=== PATIENT | female | born 1930 | race Caucasian/White ===

== ENCOUNTER → 2016-12-03 | Outpatient (CLI) | payer MEDICARE, BC ==
[~2016-12-03] MED LIST: ALEVE220 MG PO; ASPIRIN LO-DOSE81 MG PO; ATIVAN 1 MG1 MG PO; ATIVAN1 MG PO; BENICAR 20 MG20 MG PO; BENTYL10 MG PO; BYSTOLIC2.5 MG PO; CARDIZEM30 MG PO; CIPRO500 MG PO; FISH OIL 1,2001 EACH PO; LEVOTHROID (SY88 MCG PO; NITROGLYCERIN0.4 MG SL; PLAVIX75 MG PO; RESTASIS 0.05%1 VIAL OPHTH; TYLENOL325 MG PO; ULTRAM50 MG PO; VITAMIN B-121000 MCG PO; VITAMIN D1000 UNIT PO; WARFARIN SODIUM2 MG PO
[2016-12-03 16:16] LABS: BILIRUBIN URINE NEGATIVE (NEGATIVE); BLOOD URINE NEGATIVE /UL (NEGATIVE); COLOR URINE YELLOW (YELLOW); GLUCOSE URINE NEGATIVE (NEGATIVE); KETONE URINE NEGATIVE (NEGATIVE); LEUKOCYTES URINE 500 /UL (NEGATIVE); NITRITE URINE NEGATIVE (NEGATIVE); PROTEIN URINE NEGATIVE (NEGATIVE); TURBIDITY URINE CLEAR (CLEAR); UROBILINOGEN URINE NORMAL (NORMAL)
[2016-12-03 16:22] LABS: RBC URINE NEGATIVE #/HPF (NEGATIVE); RENAL EPITH URINE 0-2 #/HPF (NEGATIVE); WBC URINE 20-50 #/HPF (NEGATIVE)
[2016-12-03 16:23] LABS: BACTERIA URINE MODERATE (NEGATIVE); MUCUS URINE 1+ (NEGATIVE); WBC CLUMPS URINE FEW (NEGATIVE)
[2016-12-03 16:50] LABS: BASOPHIL # 0.1 K/uL (0.0-0.2); BASOPHIL % 0.7 %; EOSINOPHIL # 0.2 K/uL (0.0-0.5); EOSINOPHIL % 1.7 %; HEMATOCRIT 42.6 % (30.0-46.0); IMMATURE GRANULOCYTE % 0.2 %; LYMPHOCYTE # 1.8 K/uL (0.8-4.0); LYMPHOCYTE % 21.2 %; MCH 31.1 pg (27.0-34.0); MCHC 32.9 gm/dL (32.0-36.5); MCV 94.7 fl (83.0-98.0); MONOCYTE # 0.6 K/uL (0.0-1.0); MONOCYTE % 7.1 %; MPV 10.9 fl (9.4-12.4); NEUTROPHIL % 69.1 %; NRBC % 0 /100WBC (0-0.00); PLATELET COUNT 252 K/uL (150-450); RDW-CV 13.2 % (11.9-14.6); WBC 8.6 K/uL (4.0-11.0)
[2016-12-03 17:04] LABS: ANION GAP 10.5 (10.0-19.0); BLOOD UREA NITROGEN 17 mg/dL (6-24); CALCIUM 8.9 mg/dL (8.5-10.5); CHLORIDE 108 mMol/L (96-110); CO2 26 mMol/L (22-32); CREATININE 0.8 mg/dL (0.5-1.1); ESTIMATED GFR (MDRD EQUATION) > 60; POTASSIUM 4.5 mMol/L (3.7-5.1); SODIUM 140 mMol/L (135-145)
== END ==
LOC: LNHI 15:39
PROVIDERS: Internal Medicine Clinical Cardiac Electrophysiology
DX: Z01.810 Encounter for preprocedural cardiovascular examination (principal)

== ENCOUNTER → 2017-01-23 | Outpatient (CLI) | payer MEDICARE, BC ==
--- NOTE | ~2017-01-23 | ESTC ---
Cardiac Perfusion Imaging Demographics Patient Name RASHAUN Avila Gender Female Patient Number [id number] Race Visit Number [id number] Ethnicity Corporate ID Room Number Accession Number [id number] Height 58 inches Date of 1930 Weight 115 pounds Interpreting Emma Gomez Date of study 01/23/2017 Physician Supervising /JAYLAP Thomas GARCIA Technologist Kaitlin Sinclair MD Ordering Physician Thomas Scanlon A patient care technician Stress ECG Reading Thomas Jarvis Nurse Christine Rutherford Physician Dottie VILLARREAL RN Medications Reviewed with Patient prior to Procedure. Procedure Procedure Type: Nuclear Stress Test:Pharmacological, Lexiscan, Cardiolite Stress Test Procedure Start time: 01/23/2017 08:20 Indications: Chest pain, Hypertension and History of CAD. Risk Factors The patient risk factors include:prior PCI;cerebrovascular disease, hypercholesterolemia, treated hypertension, dyslipidemia and prior CT . Conclusions Summary Perfusion Images: The overall quality of the study is poor. Left ventricular cavity is noted to be normal on the stress and normal on the rest images. There is no evidence of abnormal lung activity. The right ventricle is not visualized an cannot be assessed. Impression ECG portion of lexiscan stress test is clinically negative for ischemia by diagnostic criteria. Myocardial perfusion imaging without perfusion defects suggestive of ischemia or infarct. Overall left ventricular systolic function was normal without regional wall motion abnormalities. Calculated LVEF is 80% and TID ratio is 1.16. Stress Protocols Resting ECG A paced and SR Pre-stress physical exam: Patient assessed by Dr Guzman prior to testing. Stress Protocol:Pharmacologic Predicted HR: 132 bpm ECG Findings No ECG changes suggestive of ischemia. Arrhythmias No rhythm abnormality. Symptoms Shortness of breath. Nausea. Stress Interpretation Appropriate hemodynamic response to Lexiscan. No significant ST-T wave changes with Lexiscan. ECG portion is negative for ischemia by diagnostic criteria. Imaging Results Summed scores - Summed stress score: 9 - Summed rest score: 20 - Summed difference score: -11 Stress ejection Ejection fraction:80 % EDV :59 ml ESV :12 ml Stroke volume :47 ml LV mass :85 gr Imaging Protocols Rest Stress Isotope:Tc99m Sestamibi IV Isotope: Tc99m Sestamibi IV Isotope dose:10.4 mCi Isotope dose:32.5 mCi Date:01/23/2017 07:17 Date:01/23/2017 08:40 Technique: SPECT Technique: Gated Supine SPECT Supine Scan Time:45-60 minutes post Scan Time:45-60 minutes post injection injection Procedure Medications - Regadenoson (Lexiscan) 0.4 mg IV over 10-15 sec. I.V. 0.4 mg. Medications administered per verbal order and read back to physician prior to administration. Medical History Admission Data Admission date: 01/23/2017 Admission Time: 06:36 Hospital Status: Outpatient. Signatures dtt: JORDON KRUEGER dtd: 01/23/17 0895 Physician Self Edit
== END | disposition disaster alternative care site (69) ==
LOC: GRAD 06:36
DX: R07.9 Chest pain, unspecified (principal); R26.2 Difficulty in walking, not elsewhere classified; E78.00 Pure hypercholesterolemia, unspecified; E78.5 Hyperlipidemia, unspecified; I10 Essential (primary) hypertension; I67.9 Cerebrovascular disease, unspecified; I25.2 Old myocardial infarction; Z86.73 Personal history of transient ischemic attack (TIA), and cerebral infarction without residual deficits
CPT/HCPCS: A9500; J2785

== ENCOUNTER 2017-02-01 05:51 | Inpatient (IN) | payer MEDICARE, BC ==
[~2017-02-01] VITALS: Ht 149.9 cm; Wt 52.1 kg
--- NOTE | ~2017-02-01 | HP ---
PATIENT'S NAME: GAVIN RODNEY [facility] AGE: 86 Y [address] ROOM: [place] [address] LOCATION: GPCU ADMIT DATE: 02/01/2017 History & Physical DISCHARGE DATE: FAMILY PHYSICIAN: KO BURTON MD ATTENDING PHYSICIAN: Rod HUTCHINSON DATE OF SERVICE: CHIEF COMPLAINT: Chest pain. HISTORY OF PRESENT ILLNESS: The patient is an 86-year-old female with past medical history of CAD status post PCI, atrial fibrillation on Coumadin, hyperlipidemia, and sick sinus syndrome on pacemaker, who presents here with chest pain. The patient reports that she got up at 4 a.m. due to chest pain. She reports chest pain as chest discomfort, substernal, rates the pain 6 to 5 out of 10. Pain was associated with weakness and mild shortness of breath. EMS was called and the patient was brought in to our Emergency Department for further evaluation. En route to the Emergency Department, the patient received full dose of aspirin and nitroglycerin. The patient reports that as soon as she received nitroglycerin few minutes later her chest pain resolved. Of note, the patient has had stress test done on January 23, 2017. The patient had Lexiscan, the test was of poor quality, but was noted to be normal. The patient also was in [place] and has had pacemaker placement for sick sinus syndrome. The patient denies fever, chills, abdominal pain, nausea, and vomiting, diarrhea, dizziness, syncope, vision change, and productive cough. MEDICAL HISTORY: 1. Hypothyroidism. 2. Coronary artery disease. 3. CVA. 4. Atrial fibrillation. 5. Sick sinus syndrome. SURGICAL HISTORY: 1. PCI. 2. Hysterectomy. 3. Pacemaker placement. 4. Hernia repair. 5. Oophorectomy. 6. Tonsillectomy. PATIENT'S NAME: ANIKET RODNEYNA Austin [facility] AGE: 86 Y [address] ROOM: [place] [address] LOCATION: GPCU ADMIT DATE: 02/01/2017 History & Physical DISCHARGE DATE: FAMILY PHYSICIAN: KO BURTON MD ATTENDING PHYSICIAN: Rod HUTCHINSON FAMILY HISTORY: The patient reports her sister and mother had cancer, but she does not know what type. Father had significant heart disease. SOCIAL HISTORY: Denies smoking, denies drinking. 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 Her 20 years ago. ALLERGIES: THE PATIENT REPORTS SHE IS ALLERGIC TO F[place]ANYL. MEDICATIONS: Currently being reconciled. REVIEW OF SYSTEMS: All systems have been reviewed and are negative except for what I mentioned in HPI. PHYSICAL EXAMINATION: VITAL SIGNS: Temperature 97, blood pressure 113/72, heart rate 66, respiratory rate 18, saturating 94% on room air. GENERAL APPEARANCE: The patient is an elderly woman lying on bed, in no acute distress, have a family member with her. HEAD: Normocephalic and atraumatic. EYES: Extraocular muscle intact. Sclerae nonicteric. NOSE: No nasal discharge. EARS: No ear discharge. ORAL CAVITY: Moist oral cavity. CHEST: Clear to auscultation bilaterally. HEART: Regular rate and rhythm. No murmurs, rubs, or gallops heard. ABDOMEN: Soft, nontender, and nondistended. Bowel sounds present. SKIN: Warm to touch, no obvious lesion noted. MUSCULOSKELETAL: Range of motion intact. CENTRAL NERVOUS SYSTEM: The patient is alert and oriented. Motor and sensory grossly intact. LABORATORY DATA: Troponin x1 negative. INR 2.4, creatinine 0.9, BUN 19, potassium 4.5, white blood cell 8.5, hemoglobin 13.6, platelet of 252. EKG normal sinus rhythm. Normal axis. No ischemic ST and T-wave changes noted. CT 153, QRS 74, rate of 65. PATIENT'S NAME: GAVIN RODNEY [facility] AGE: 86 Y [address] ROOM: [id number] [place] [id number] [facility] ADMIT DATE: 02/01/2017 History & Physical DISCHARGE DATE: FAMILY PHYSICIAN: KO BURTON MD ATTENDING PHYSICIAN: Rod HUTCHINSON ASSESSMENT AND PLAN: 1. Unstable angina. The patient is presenting with typical chest pain during rest. The SMITH score of 4 with 30% risk at 14 days of all-cause mortality. New or recurrent myocardial infarction, or severe recurrent ischemia requiring urgent revascularization. We will admit the patient as an inpatient. We will continue aspirin, beta-carlos, and we will start the patient on Lipitor 80 mg. Discussed case with Cardiology. We will hold the Coumadin for possible coronary angiogram for tomorrow. We will keep the patient n.p.o. after midnight. We will have nitroglycerin p.r.n. for pain. 2. Hypertension, stable. We will continue Bystolic. We will hold ADAMS inhibitor for possible coronary angiogram. Hypertension, stable. 3. Paroxysmal atrial fibrillation. Elevated CHADS-VASc score, INR of 2.4. We will hold Coumadin for possible coronary angiogram tomorrow. To continue Bystolic. 4. Hypothyroidism. We will continue Synthroid supplement. 5. Sick sinus. Continue medication, on pacemaker. 6. History of cerebrovascular accident. Continue aspirin and Lipitor. 7. Hyperlipidemia. Start the patient on Lipitor 80 mg. We will acquire lipid profile tomorrow morning. Greater than 50 minutes was spent on patient's care. 50% of time spent on direct care and consultation with the ER physician Dr. Cartwright and Cardiology. We will admit the patient for unstable angina and possible coronary angiogram intervention by tomorrow. Keep the patient n.p.o. after midnight. Assessment and plan was discussed with the patient and family member. All questions were answered with satisfaction. Code status discussed on admission. Code status full code. MD MOHINI MCCLAIN/mitali /[id number] D: [id number] T: [id number] HISTORY & PHYSICAL
--- NOTE | ~2017-02-01 | DS ---
PATIENT'S NAME: GAVIN RODNEY [facility] AGE: 86 Y [address] ROOM: [address] [place] [address] LOCATION: GPCU ADMIT DATE: 02/01/2017 Discharge Summary DISCHARGE DATE: 02/03/2017 FAMILY PHYSICIAN: Zechariah Gifford MD ATTENDING PHYSICIAN: Rod Reyes DISCHARGE DIAGNOSES: 1. Unstable angina. 2. Hypertension, controlled. 3. Paroxysmal atrial fibrillation by history, paced. 4. Long-term anticoagulation (Coumadin). 5. Right forearm swelling status post heart catheterization. 6. History of right cerebrovascular accident with left hemiparesis. 7. Urinary tract infection. PROCEDURES: Left heart catheterization through the right upper extremity with a PCI to right coronary artery. REASON FOR ADMISSION: Chest pain. PHYSICAL EXAMINATION: VITAL SIGNS: Today, temp was 98, pulse was 64, BP 129/65, SaO2 was 95% on room air. GENERAL: She was alert and verbally articulate. CHEST: Clear. HEART: Regular rate and rhythm with a 2/6 systolic ejection murmur. Note that rhythm was paced. ABDOMEN: Belly was completely soft, nontender. No HSM or masses. No guarding or rebound. EXTREMITIES: Warm and well perfused with good distal pulses. Her right arm was quite swollen. She said it was stable, not getting any worse, and I recommended she hold the hand above the level of her heart like on the back of the couch or up a wall and just squeeze and hand in and out for 2 to 3 minutes every hour until that was better. She indicated understanding, is very interested in going home. LABORATORY RESULTS: Chemistries: Sodium, potassium, electrolytes all normal. Glucose was slightly elevated at 105. Calcium, BUN, and creatinine were normal. Albumin was low at 3.2. Liver function tests were all normal. GFR was 59, magnesium 2.1, lipid profile showed total cholesterol 171 with HDL 39, triglycerides 182. Troponin was initially elevated at 0.06. Free T4 was up slightly at 1.79 but TSH was normal at 0.6. D-dimer was normal at 0.216. Hematology: White count, hemoglobin, and platelets all normal. Differential was benign. CPK was low, but that was from January 20. Urinalysis actually showed 20-50 white cells with only 2-5 epithelials and moderate bacteria. PATIENT'S NAME: GAVIN RODNEY [facility] AGE: 86 Y [address] ROOM: [address] [place], [place] [address] [facility] AD[facility] DATE: 02/01/2017 Discharge Summary DISCHARGE DATE: 02/03/2017 FAMILY PHYSICIAN: Zechariah Gifford MD ATTENDING PHYSICIAN: Rod Reyes [facility] COURSE: At discharge, the patient will be discharged home. She is to get back into physical therapy for the deconditioning that occurred here and probably also 3 weeks ago when she had her pacer installed. I do not see that she was placed on antibiotics, so I will probably place her on Cipro at discharge as she is allergic to the sulfa. I will put her on Cipro 500 twice a day for 7 days and have her follow up on that in 2 weeks with her primary care doctor. Diet will be cardiac prudent. Activity will be per physical therapy. Medications will be per nursing med reconciliation. Note that this discharge process took 45 minutes. MD FANNY ROY/mitali /[id number] d: 02/04/17 0425 t: 02/24/17 1559, DISCHARGE SUMMARY
--- NOTE | ~2017-02-01 | CATH ---
Cardiac Diagnostic + PCI Report Demographics Patient Name RASHAUN Avila Gender Female Date of 1930 Age 86 year(s) Patient Number [id number] Date of Study 02/02/2017 Visit Number [id number] Room Number [address] [place] [id number] Ht 149.8 cm Wt 59.1 kg Referring Ирина Apple MD Primary Physician Physician Eric Velasco Performing Efstratiou Secondary Physician Physician Simona Sinclair MD Diagnostic Efstratiou Assisting Physician Physician Simona Sinclair MD Interventional Efstratiou Physician Public Interviewer Physician Simona Sinclair MD Findings and Conclusions Diagnostic Findings and Conclusion Patent mid LAD stent with moderate diffuse in stent restenosis. New severe distal RCA Stenosis. Diagnostic Recommendations PCI to RCA. Interventional Findings and Conclusion Successful LIDIA to distal RCA. Interventional Recommendations Triple therapy X 1 month, then Plavix and Wafarin for 11 months. Procedure Description The patient was brought to the diagnostic cardiac catheterization-EP laboratory in the fasting, non-sedated state. Informed consent was obtained in the written and verbal form after the risks and benefits were explained. The patient had no further questions and agreed to proceed. The planned puncture-incision site(s) were shaved and prepped with ChloraPrep and draped in the usual sterile manner. supplemental oxygen, Pain control medications was delivered by a registered nurse under physician guidance. Surface ECG rhythm, blood pressure measurement, and pulse oximetry were monitored throughout the procedure. Arterial access. The access site was infiltrated with lidocaine. The vessel was entered with the Seldinger technique. A sheath was advanced into the vessel and used for catheter placement. Selective left coronary angiography. A catheter was advanced into the left coronary vessel ostium under Fluoroscopic guidance. Contrast was injected by hand. Images were obtained in multiple projections. Selective right coronary angiography. A catheter was advanced into the right coronary vessel ostium under fluoroscopic guidance. Contrast was injected by hand. Images were obtained in multiple projections. Left heart catheterization. A catheter was advanced across the aortic valve to the left ventricle under fluoroscopic guidance. Resting hemodynamics were obtained. Angioplasty and Stent Placement: A guiding catheter was used to intubate the vessel. A 0.14 wire was then used to cross the lesion. A balloon catheter was placed across the lesion and inflated. The balloon catheter was then removed. A Drug Eluting Stent was placed and inflated. Post placement angiograms were performed. Arterial artery hemostasis was achieved. The patient was transferred to a regular nursing floor via cart accompanied by a nurse. The patient left the laboratory in stable condition. Diagnostic Cath Status: Urgent Interventional Cath Status: Urgent Procedure Procedure Type Diagnostic procedure:Angiography:, Coronary Angios /[facility] PCI procedure:Drug Eluting Coronary Stent:, RCA Indications: Chest pain and CAD. The procedure was explained in detail to the patient. Risks, complications and alternative treatments were reviewed. Written consent was obtained. Medications Reviewed with Patient prior to Procedure. Angiographic Findings Dominance: Right Cardiac Arteries and Lesion Findings LMCA: Lesion on LMCA: Mid subsection.20% stenosis . LAD: Lesion on Prox LAD: Ostial.50% stenosis . Lesion on Mid LAD: Mid subsection.40% stenosis . Comments:40 % mid diffuse in stent restenosis. Lesion on 1st Diag: Proximal subsection.20% stenosis . LCx: OM patent. Lesion on Prox CX: Proximal subsection.30% stenosis . RCA: There is a previous stent on Dist RCA Distal subsection. Lesion on Dist RCA: Distal subsection.80% stenosis reduced to 10%. Pre procedure SMITH III flow was noted. Post Procedure MSITH III flow was present. The guidewire cross was successful.The lesion was diagnosed as a low risk lesion.Culprit lesion. Treatment results:Interventional treatment was successful. Devices used - Whisper Wire .014 x 190. Number of passes: 1. - Emerge Balloon 3.0 x 12. 1 inflation(s) to a max pressure of: 14 eleazar. - Promus Premier 3.5 x 28 Stent. 1 inflation(s) to a max pressure of: 12 eleazar. - NC Emerge Balloon 3.75 x 15. 2 inflation(s) to a max pressure of: 18 eleazar. Lesion on Prox RCA: Proximal subsection.25% stenosis . Coronary Tree Procedure Data Procedure Date Date: 02/02/2017Start: 12:21 PMEnd: 12:56 PM Entry Locations - Retrograde Percutaneous access was performed through the Right Radial artery (Primary location). A 6 Fr sheath was inserted. Hemostasis was successfully obtained using Mechanical Compression. Closure Comments: Radial band placed by Neva Olsen. 16 ml's in band.. Procedure Medications Order and Administration + + +--------+-------+ !Time !Medication !Dosage !Route ! + + +--------+-------+ !02/02/2017 !Dilaudid !0.25 mg !I.V. ! !12:19 PM ! ! ! ! + + +--------+-------+ !02/02/2017 !PAE Radial Cocktail: Heparin 5000 units, ! !I.A. ! !12:24 PM !Nitroglycerin 200mcg, Verapamil 3 mg ! ! ! ! !(ACC_3) ! ! ! + + +--------+-------+ !02/02/2017 !Heparin (ACC_3) !2000 !I.V. ! !12:32 PM ! !units ! ! + + +--------+-------+ Devices Used - A6 Fr. BS JR 4 Diag. Catheterwas used for:Right coronary angiography. - A6 Fr. BS JL 3.5 Diag. Catheterwas used for:Left coronary angiography. - A6 Fr. HS Guide Catheterwas used for:RCA Intervention. Contrast Material - Isovue 63307 ml Fluoroscopy Time: Diagnostic: 7:48 minutes. Total: 7:48 minutes. Fluoroscopy Dose: Diagnostic: 370 mGy. Total: 370 mGy. Estimated Blood Loss: 15 ml. Additional [facility] PCI Information PCI Indication:PCI for high risk Non-STEMI or unstable angina. Medical History Performed Procedures and Imaging Results - Stress testing with SPECT MPIwas performed. Results were: Negative. History of Disease + + + + !Diagnosis !Date !Comments ! + + + + !CAD ! ! ! + + + + !Hypertension ! ! ! + + + + Allergies - Sulfa. - Other:(sulfa, bisphoshonates, ethyl alcohol,erythromycin,fentynl, statin, diltizem,demerol,alendronale). Risk Factors The patient risk factors include:prior PCI;cerebrovascular disease, physical activity, hypercholesterolemia, hypertension, family history of premature CAD, last creatinine: 0.9 mg/dl, creatinine clearance: 40.31 ml/min, dyslipidemia, Current/Recent(w/in 1 year) tobacco use and prior [place] . Admission Data Admission Date: 02/01/2017 Admission Time: 09:35 AM Admit Source: Emergency department Insurance Payors: Medicare. Admission Medications + +------+------+ + + + + !Medication !Dosage!Times !Last !Last !Administered !Comments ! ! ! !Per !Delivery !Delivery ! ! ! ! ! !Day !Date !Time ! ! ! + +------+------+ + + + + !Aspirin ! ! ! ! ! ! ! !(any) ! ! ! ! ! ! ! + +------+------+ + + + + !Beta ! ! ! ! ! ! ! !Tony ! ! ! ! ! ! ! !(any) ! ! ! ! ! ! ! + +------+------+ + + + + Clinical Evaluation Leading to Procedure - The patient's CAD presentation was assessed as: Unstable angina. - The patient's anginal syndrome during the past two weeks was assessed as: Class IV according to the [place] Cardiovascular Society Classification System (CCS). Anti-anginal medications were prescribed during the past two weeks. The medication is: Beta Blockers. - The patient has been in a state of heart failure within the past two weeks. - The patient's heart failure status was assessed as NYHA Class I. Snapshots Hemodynamics Condition: Rest O2 Consumption: Estimated: 140.77Heart Rate: 79 bpm Pressures (mmHg) +-----+ + !Site !Pressure ! +-----+ + !LV !155/4 ,13 ! +-----+ + !LV !155/4 ,14 ! +-----+ + !AO !157/65 (104) ! +-----+ + !LV !158/3 ,13 ! +-----+ + !AO !154/65 (103) ! +-----+ + Valve Gradients and Areas + +---------+---------+---------+ +---------+ + !Valve !Peak !Mean !Area !Index !Flow !Source ! + +---------+---------+---------+ +---------+ + !Aortic !2 !0 ! ! ! ! ! + +---------+---------+---------+ +---------+ + !Aortic !2 !0 ! ! ! ! ! + +---------+---------+---------+ +---------+ + Shunts Oxygen Values O2 Capacity 184.96 O2 Consumption 140.77 Signatures dtt: Esha Guzman dtd: 02/02/17 1221 Physician Self Edit
--- NOTE | ~2017-02-01 | ER ---
[facility] AGE[facility] 86 Y [address] ROOM: [place] [address] LOCATION: GPCU ADMIT DATE: 02/01/2017 ER/Outpatient Report DISCHARGE DATE: FAMILY PHYSICIAN: KO BURTON MD ATTENDING PHYSICIAN: Rod REYES Time of Arrival: 0554 hours. Time of Evaluation: 0554 hours. CHIEF COMPLAINT: Chest pain. HISTORY OF PRESENT ILLNESS: The patient is an 86-year-old female who presents to the emergency department today with chief complaint of chest pain. She reports this started approximately at 4 o'clock this morning. It is in center upper portion of her chest, it did wake her from sleep. She reports it feels like an elephant on her chest. Maximum was 3/10 in severity. She reports some associated shortness of breath with it. She has had a productive cough. She reports some nausea. No vomiting. She also reports she has just felt weaker than normal ever since she had a Lexiscan stress test performed approximately a week ago. She does report it was a heaviness, pressure tightness type pain. The patient denies any vomiting. No radiation. Denies any history of PE or DVT. No ripping or tearing sensation. No radiation to the back. PAST MEDICAL HISTORY: 1. Coronary artery disease with stents. 2. CVA with left-sided residual deficits. 3. Hypertension. 4. Dyslipidemia. 5. Atrial fibrillation. 6. Dry eyes. 7. Hypothyroidism. PAST SURGICAL HISTORY: 1. Pacemaker 4 weeks ago. 2. Hernia. 3. Hysterectomy. 4. Eye surgery. 5. Three cardiac stents. SOCIAL HISTORY: The patient denies any tobacco, alcohol, or illicit drug use. She does live by herself with close neighbor support. [facility] AGE: 86 Y [address] ROOM: [place] [address] LOCATION: GPCU ADMIT DATE: 02/01/2017 ER/Outpatient Report DISCHARGE DATE: FAMILY PHYSICIAN: KO BURTON MD ATTENDING PHYSICIAN: Rod REYES ALLERGIES: ALENDRONATE, CALCIUM, DABIGATRAN, FENTANYL, IBANDRONATE, STATINS, SULFA, TRAZODONE, AND VALSARTAN. MEDICATIONS: 1. Tylenol. 2. Aspirin 81 mg 2 tablets orally every morning. 3. Vitamin D3. 4. Vitamin B12. 5. Restasis. 6. Dicyclomine. 7. Diltiazem 30 mg 1 tablet p.o. q.i.d. as needed for palpitations. 8. Synthroid. 9. Lorazepam. 10. Aleve. 11. Bystolic 2.5 mg 1 tablet p.o. b.i.d. 12. Nitroglycerin as needed. 13. Benicar. 14. Hathorne-3 fatty acid. 15. Coumadin 2 mg 1 tablet daily. PRIMARY CARE DOCTOR: Ko Burton MD FOIL STAMP OPERATOR: Esha Guzman MD REVIEW OF SYSTEMS: All systems are reviewed by myself and are negative with the exception of those discussed in the HPI and past medical history. PHYSICAL EXAMINATION: VITAL SIGNS: Weight 54.9 kg. Blood pressure 113/72, pulse 66, respiratory rate 18, temperature 97.0, and oxygen saturation 94% on room air. GENERAL: The patient is an 86-year-old female, appears stated age, in no acute distress at this time. HEENT: Normocephalic and atraumatic. Pupils are equal, round, and reactive to light and accommodation. Extraocular motions are intact. Nares are patent bilaterally. Oropharynx is clear. NECK: Supple. There is no nuchal rigidity. CARDIOVASCULAR: Regular rate and rhythm. No murmurs, rubs, or gallops. LUNGS: Clear to auscultation bilaterally. No wheezes, rales, or rhonchi. ABDOMEN: Soft, nontender, and nondistended. No rebound, rigidity, or guarding. MUSCULOSKELETAL: The patient moves all 4 extremities. PATIENT'S NAME: GAVIN RODNEY [facility] AGE: 86 Y [address] ROOM: [id number] [place], [place] [address] [facility]ATION[facility] ADMIT DATE: 02/01/2017 ER/Outpatient Report DISCHARGE DATE: FAMILY PHYSICIAN: KO BURTON MD ATTENDING PHYSICIAN: Rod REYES SKIN: Warm and dry. There are no rashes or lesions noted. LABORATORY DATA AND IMAGING STUDIES: Labs and x-rays are obtained. EKG is obtained, is interpreted by myself, shows sinus rhythm with a rate of 65, normal axis, and normal interval. No ST elevation, ST depression, or T-wave inversions. This is compared to 05/30/2015. There is now a new normalization of V1, V2, V3 compared to the previous EKG. Repeat EKG is obtained at 0824 hours shows atrial pacing with a rate of 60, normal axis, and normal interval. No ST elevation, ST depression, or T-wave inversions. CBC is normal. CMP is normal. Magnesium is normal. LFTs are normal. Cardiac enzymes are normal. ProBNP is normal. CK, CK-MB, and troponin are all normal. INR is 2.47, therapeutic. A 2-hour cardiac enzymes are normal. Chest x-ray shows no acute process. IMPRESSION: 1. Unstable angina. 2. History of coronary artery disease with previous stenting. 3. History of cerebrovascular accident. 4. History of atrial fibrillation. 5. Currently on chronic anticoagulation. 6. Initial visit. EMERGENCY DEPARTMENT COURSE: The patient was brought back to the examination room. Seen and evaluated by myself. IV was established. Laboratory analysis and imaging are obtained as described above. The patient was given 4 baby aspirin prior to arrival as well as 1 nitroglycerin. The patient has no pain. She has remained pain-free while here in the emergency department. Laboratory analysis, imaging, and EKG are obtained as described above. Workup is unremarkable. Her stress test is reviewed from 01/23/2017. It was a Lexiscan Cardiolite stress test. The overall quality of the study was poor, however. There was no evidence of ischemia. LVEF was noted to be 80%. I did discuss the results of the testing with the patient, her daughter, and son-in-law who are at the bedside. I did discuss the case with Dr. Guzman, who is on-call for Cardiology and is the patient's primary job printer apprentice. He has recommended admission for observation and consideration for possible heart catheterization. I have discussed this with the patient and her family at the bedside. She is agreeable. I have discussed the case with Dr. Reyes, who is on-call for the Hospitalist Service. He does agree to accept the patient in consultation with Dr. Guzman. DISPOSITION: The patient is admitted under the care of the Hospitalist Service in stable condition. PATIENT'S NAME: GAVIN RODNEY [facility] AGE: 86 Y [address] ROOM: [id number] [place] [id number] LOCATION: [facility] ADMIT DATE: 02/01/2017 ER/Outpatient Report DISCHARGE DATE: FAMILY PHYSICIAN: KO BURTON MD ATTENDING PHYSICIAN: Rod REYES DO ELIESER GONZALES/mitali /[id number] d: 02/01/17 1655 t: 02/12/17 0631, OUTPATIENT REPORT
[2017-02-01 06:18] LABS: BASOPHIL % 0.5 %; EOSINOPHIL # 0.1 K/uL (0.0-0.5); EOSINOPHIL % 1.6 %; HEMATOCRIT 40.4 % (30.0-46.0); HEMOGLOBIN 13.6 g/dL (10.0-15.0); IMMATURE GRANULOCYTE % 0.2 %; LYMPHOCYTE # 2.1 K/uL (0.8-4.0); LYMPHOCYTE % 24.5 %; MCH 31.7 pg (27.0-34.0); MCHC 33.7 gm/dL (32.0-36.5); MCV 94.2 fl (83.0-98.0); MONOCYTE # 0.6 K/uL (0.0-1.0); MONOCYTE % 7.3 %; MPV 10.4 fl (9.4-12.4); NEUTROPHIL # (ANC) 5.6 K/uL (1.8-7.8); NEUTROPHIL % 65.9 %; NRBC % 0 /100WBC (0-0.00); PLATELET COUNT 252 K/uL (150-450); RBC 4.29 M/uL (3.00-5.00); RDW-CV 13.1 % (11.9-14.6); WBC 8.5 K/uL (4.0-11.0)
[2017-02-01 06:29] LABS: INR - (THERAPEUTIC) 2.47 (0.92-1.07); PROTIME 26.2 SECONDS (9.8-11.4); PTT 44 SECONDS (25-32)
[2017-02-01 06:37] LABS: ALBUMIN 3.2 gm/dL (3.5-5.0); ALK PHOS 67 IU/L (33-138); ALT 16 IU/L (12-78); ANION GAP 11.5 (10.0-19.0); AST 37 IU/L (10-40); BLOOD UREA NITROGEN 19 mg/dL (6-24); CALCIUM 8.9 mg/dL (8.5-10.5); CHLORIDE 109 mMol/L (96-110); CO2 24 mMol/L (22-32); CPK 25 IU/L (21-215); CREATININE 0.9 mg/dL (0.5-1.1); ESTIMATED GFR (MDRD EQUATION) 59; MAGNESIUM 2.1 mg/dL (1.8-2.6); POTASSIUM 4.5 mMol/L (3.7-5.1); SODIUM 140 mMol/L (135-145); TOTAL BILIRUBIN 0.3 mg/dL (0.0-1.5); TOTAL PROTEIN 6.3 g/dL (6.0-8.4)
[2017-02-01 08:45] LABS: CPK 27 IU/L (21-215)
--- NOTE | 2017-02-01 10:28 | NUR ---
ADMITTED FROM THE ER WITH CHEST PAIN. AWOKE AT 0400 THIS AM WITH HEAVY "ELEPHANT SITTING ON HER CHEST" PAIN. SHE TOOK 4 BABY ASA AND 1 SL NITRO AND CALLED THE EMS. PAIN WAS 1/10 WHEN ARRIVED TO THE ER AND THEN IT RESOLVED AND HAS HAD NO PAIN SINCE THEN. HX 2 STENTS AND A RECENT PACEMAKER AT THE END OF NOVEMBER AT [facility] IN [place]. HX ME, HTN, AND A STROKE SEVERAL YEARS AGO WITH LT)SIDED RESIDUAL WEAKNESS; USES A CANE WITH AMBULATION. SHE ALSO HAD A STRESS TEST WITH INCONCLUSIVE RESULTS LAST WEEK WITH DR. QUINTANILLA AND STATES THAT SHE HAS FELT WEAK AND HAD A COUGH SINCE THEN. VSS AND RA. DENIES PAIN WHEN ARRIVED TO THE FLOOR. AFEBRILE. A/O X3. LIVES BY SELF IN A [place]. DAUGHTER AT BEDSIDE. DR. QUINTANILLA AWARE OF THE CONSULT.
[2017-02-01] MEDS ORDERED: TYLENOL325 MG PO (11:20)
[2017-02-01] MEDS ORDERED: ASPIRIN LO-DOSE81 MG PO (11:22)
[2017-02-01] MEDS ORDERED: VITAMIN D1000 UNIT PO (11:23)
[2017-02-01] MEDS ORDERED: VITAMIN B-121000 MCG PO (11:25)
[2017-02-01] MEDS ORDERED: RESTASIS 0.05%1 VIAL OPHTH (11:28)
[2017-02-01] MEDS ORDERED: BENTYL10 MG PO (11:29)
[2017-02-01] MEDS ORDERED: CARDIZEM30 MG PO (11:31)
[2017-02-01] MEDS ORDERED: LEVOTHROID (SY88 MCG PO (11:32)
[2017-02-01] MEDS ORDERED: ATIVAN1 MG PO (11:34)
[2017-02-01] MEDS ORDERED: ALEVE220 MG PO (11:35)
[2017-02-01] MEDS ORDERED: BYSTOLIC2.5 MG PO (11:36)
[2017-02-01] MEDS ORDERED: NITROGLYCERIN0.4 MG SL (11:38)
[2017-02-01] MEDS ORDERED: BENICAR 20 MG20 MG PO (11:40)
[2017-02-01] MEDS ORDERED: FISH OIL 1,2001 EACH PO (11:44)
[2017-02-01] MEDS ORDERED: WARFARIN SODIUM2 MG PO (11:46)
[2017-02-01 13:50] LABS: CPK 26 IU/L (21-215)
--- NOTE | 2017-02-01 16:12 | NUR ---
Significant Event: A/Ox3. SBP- 140-150s. P-60. Atrial paced. Afebrile. Room air with saturations in the mid 90s. Patient has NS at 100ml/hr infusing into her L) hand. 600mg of plavix given x1. Patient denies CP and SOB since on the floor. Up with SBA. Patient will get heart cath around 0900 tomorrow AM. Permits need signed and patient needs groin prepped.
[2017-02-01 19:59] LABS: CPK 29 IU/L (21-215)
[2017-02-02 02:57] LABS: CPK 23 IU/L (21-215)
[2017-02-02 03:10] LABS: INR - (THERAPEUTIC) 2.58 (0.92-1.07); PROTIME 27.3 SECONDS (9.8-11.4)
--- NOTE | 2017-02-02 07:03 | NUR ---
Significant Event: Patient alert and oriented x3. Vital signs stable. On RA. Complaints of slight chest pressure/discomfort. Stated "it's because I just ate," and "I feel like I'm going to puke." Zofran given x1 with relief. Up with stand-by assist and cane to bathroom. Patient has left-sided weakness from past CVA. Patient at times drags left foot with ambulation. Left hand PIV with NS at 100ml/hr. INR increased this morning from 2.[address] Rutherford notified. Heart Cath cancelled for today. Plan on tomorrow. Patient calm and cooperative with all cares. Follow up: Heart Cath tomorrow?
[2017-02-02 10:51] LABS: INR - (THERAPEUTIC) 1.71 (0.92-1.07)
[2017-02-02 10:52] LABS: PROTIME 18.1 SECONDS (9.8-11.4)
[2017-02-02 14:13] LABS: CPK 39 IU/L (21-215)
--- NOTE | 2017-02-02 17:55 | NUR ---
Significant Event: A/Ox3. L) handed weakness from old stroke. [id number]. P-60s. Atrial paced. Afebrile. Room air. L) FA IV infusing NS at 100ml/hr. We are to finish this liter and then given 500ml for a total of 1500ml. Then we d/c the IVF. R) radial heart cath. Stent to the RCA. Soft no bleeding. Some moderate eccymoss present. Patient needs frequent reminders to not use her R) hand when ambluating. Will leave restroom on her own if left unattended. Post heart cath patient had terrible headache. Tylenol given with no improvment. MD notified. CT of head checke, which was negative. 20mg of proamatine given. 0.5mg od dilaudid given x1 with releif.
[2017-02-02 20:14] LABS: CPK 39 IU/L (21-215)
--- NOTE | 2017-02-03 07:41 | NUR ---
Significant Event: Patient alert and oriented x3. Vital signs stable. No complaints of chest pain or headache. Right radial site C/D/I. Ecchymotic and slightly swollen. Tender to patient. Patient needs reminders not to use right arm. Left sided weakness continues. Up with 1 assist and cane to bathroom. Calm and cooperative with all cares. left PIV saline locked. Follow Up: D/C home today.
[2017-02-03 09:08] LABS: BASOPHIL % 0.3 %; EOSINOPHIL # 0.1 K/uL (0.0-0.5); IMMATURE GRANULOCYTE % 0.2 %; LYMPHOCYTE # 1.6 K/uL (0.8-4.0); LYMPHOCYTE % 17.7 %; MCH 31.9 pg (27.0-34.0); MCHC 34.2 gm/dL (32.0-36.5); MCV 93.4 fl (83.0-98.0); MONOCYTE # 0.6 K/uL (0.0-1.0); MONOCYTE % 6.7 %; MPV 10.3 fl (9.4-12.4); NEUTROPHIL # (ANC) 6.8 K/uL (1.8-7.8); NEUTROPHIL % 74.1 %; NRBC % 0 /100WBC (0-0.00); PLATELET COUNT 243 K/uL (150-450); RBC 4.07 M/uL (3.00-5.00); RDW-CV 13.1 % (11.9-14.6); WBC 9.2 K/uL (4.0-11.0)
[2017-02-03 09:15] LABS: INR - (THERAPEUTIC) 1.63 (0.92-1.07); PROTIME 17.2 SECONDS (9.8-11.4)
[2017-02-03 09:28] LABS: ALBUMIN 3.3 gm/dL (3.5-5.0); ALK PHOS 62 IU/L (33-138); ALT 17 IU/L (12-78); ANION GAP 10.2 (10.0-19.0); AST 35 IU/L (10-40); BLOOD UREA NITROGEN 13 mg/dL (6-24); CALCIUM 8.3 mg/dL (8.5-10.5); CHLORIDE 108 mMol/L (96-110); CO2 24 mMol/L (22-32); CPK 58 IU/L (21-215); CREATININE 0.8 mg/dL (0.5-1.1); ESTIMATED GFR (MDRD EQUATION) > 60; POTASSIUM 4.2 mMol/L (3.7-5.1); SODIUM 138 mMol/L (135-145); TOTAL PROTEIN 6.4 g/dL (6.0-8.4)
[2017-02-03 09:30] LABS: TOTAL BILIRUBIN 0.6 mg/dL (0.0-1.5)
[2017-02-03] MEDS ORDERED: PLAVIX75 MG PO (09:42)
[2017-02-03] MEDS ORDERED: CIPRO500 MG PO (09:52)
--- NOTE | 2017-02-03 11:03 | NUR ---
A&O. VSS. LS CLEAR. AMB RUIZ. R WRIST EDEMATOUS WITH MODERATE ECCYMOSIS PT C/O SORENES ENCOURAGED TO KEEP ELEVATED AND TO DO SOME ARM MOVEMNETS. LS CLEAR. NO C/O PAIN OTHERWISE. NO SOB. BS ACTIVE. VD PER BR. DIMISSAL INSTRUCTIONS REVIEWED. IV DC'D. TAKEN TO LOBBY WITH SON TO PRIVATE VEHICLE HOME.
--- NOTE | 2017-02-03 14:38 | NUR ---
1230 Stopped by to see Suri and assess dismissal needs. Per her primary RN, Suri had already been dismissed to home and was not in her room.
[2017-03-26] MEDS ORDERED: BENICAR 20 MG20 MG PO (17:02)
[2017-03-26] MEDS ORDERED: ATIVAN 1 MG1 MG PO (17:03)
[2017-03-26] MEDS ORDERED: ULTRAM50 MG PO (17:03)
== END 2017-02-03 11:07 | disposition disaster alternative care site (69) | DRG 247 ==
LOC: GMED 05:51 → GPCU 09:35
PROVIDERS: Emergency Medicine; Family Medicine; Internal Medicine Cardiovascular Disease; ADMIT Internal Medicine
DX: I25.110 Atherosclerotic heart disease of native coronary artery with unstable angina pectoris (principal); I49.5 Sick sinus syndrome; I69.954 Hemiplegia and hemiparesis following unspecified cerebrovascular disease affecting left non-dominant side; N39.0 Urinary tract infection, site not specified; I10 Essential (primary) hypertension; I48.0 Paroxysmal atrial fibrillation; E78.5 Hyperlipidemia, unspecified; E03.9 Hypothyroidism, unspecified; M79.89 Other specified soft tissue disorders; Z95.0 Presence of cardiac pacemaker; Z90.710 Acquired absence of both cervix and uterus; Z79.01 Long term (current) use of anticoagulants; Z79.82 Long term (current) use of aspirin; Z95.5 Presence of coronary angioplasty implant and graft; Z88.2 Allergy status to sulfonamides; Z88.8 Allergy status to other drugs, medicaments and biological substances
CPT/HCPCS: C1725; C1769; C1874; C1887; C1894; C9600; J1170; J1644; J2405; J2720; J7030; J7050; P9017

== ENCOUNTER → 2017-02-01 | Outpatient (CLI) | payer MEDICARE, BC | END | disposition disaster alternative care site (69) | LOC: GAMB 05:33 | DX: I20.9 Angina pectoris, unspecified (principal); R07.89 Other chest pain | CPT/HCPCS: A0425; A0427 ==

== ENCOUNTER 2017-03-14 09:59 | Emergency (ER) | payer MEDICARE, BC ==
--- NOTE | ~2017-03-14 | ER ---
PATIENT'S NAME: [facility] AGE: 87 Y [address] ROOM: [place] [address] LOCATION: ED ADMIT DATE: 03/14/2017 ER/Outpatient Report DISCHARGE DATE: FAMILY PHYSICIAN: Zechariah Gifford MD ATTENDING PHYSICIAN: Evelyn Stallworth TIME OF ARRIVAL: 0959. TIME SEEN: 1000. IDENTIFICATION: An 87-year-old female. CHIEF COMPLAINT: Stroke symptoms. HISTORY OF PRESENT ILLNESS: The patient is an 87-year-old female who was at Dr. Gifford's office to discuss some x-rays of her back that she had. While she was in the Waiting Room, she felt that her left hand was stiff and numb, and her left leg was weak. She said sometimes that happens, she takes a full aspirin, and then things resolved as this has happened to her before. She also has had a previous stroke with some left-sided residual, but she said usually that is minimal. They sent her over here from Dr. Gifford's office when she states really she just wanted to take her aspirin, but she did not have that in her purse with her. ALLERGIES: TO FENTANYL. CURRENT MEDICATIONS: 1. Synthroid. 2. Bystolic. 3. Benicar. 4. Aspirin. 5. Vitamin D3. 6. Coumadin. 7. Lorazepam. 8. Tramadol. MEDICAL PROBLEMS: 1. Hypothyroidism. 2. Coronary artery disease. [facility]: 87 Y [address] ROOM: [place] [address] LOCATION: ED ADMIT DATE: 03/14/2017 ER/Outpatient Report DISCHARGE DATE: FAMILY PHYSICIAN: Zechariah Gifford MD ATTENDING PHYSICIAN: Evelyn Stallworth 3. Atrial fibrillation. 4. Chronic anticoagulation. 5. Sick sinus syndrome. 6. CVA. PRIOR SURGERIES: 1. PCI. 2. Hysterectomy. 3. Pacemaker. 4. Hernia repair. 5. Oophorectomy. 6. Tonsillectomy. SOCIAL HISTORY: The patient lives here in [place]. She is retired. Tobacco use: Denies. Alcohol use: Denies. Drug use: Denies. REVIEW OF SYSTEMS: All systems were reviewed and are negative other than what is noted in the HPI. FAMILY HISTORY: Sister and mother with some form of cancer, and father with heart disease. PHYSICAL EXAMINATION: VITAL SIGNS: Height of 4 feet 10 inches and weight of 51.8 kg. Blood pressure was 127/50, pulse was 63, respirations were 17, temperature was 97.2, and saturations were 96%. GENERAL: An 87-year-old female, in no acute distress. HEENT: Head: Normocephalic and atraumatic. Eyes: Pupils are equal and reactive to light and accommodation. Extraocular movements are intact. Nose: Mucosa was pink. No lesions or drainage. Mouth: No lesions. Pharynx was benign. NECK: Supple. No lymphadenopathy. No thyromegaly. No JVD. No carotid bruits. LUNGS: Clear to auscultation. Breath sounds are equal. No rhonchi, wheezes, or rales. HEART: Regular rate and rhythm. No murmur, rub, or gallop. ABDOMEN: Bowel sounds are present. Soft, nondistended, and nontender. SKIN: [place], warm, and dry. No lesions or rashes were noted. NEUROLOGICAL: The patient is alert and oriented x4. Cranial nerves II through XII were grossly intact. Motor strength was 5/5 throughout, with the exception of her left leg. She has difficulty raising her left leg off the cot. Some of that is related to the pain in her back, but she said normally, she can lift it better than this. Her sensory exam is normal. NIH Stroke Scale score is 2. Her symptoms then on their own completely resolved. I re-evaluated her, and her NIH Stroke Scale score was zero at 10:58. PATIENT'S NAME: GAVIN RODNEY [facility] AGE: 87 Y [address] ROOM: [place] [address] LOCATION: [facility] ADMIT DATE: 03/14/2017 ER/Outpatient Report DISCHARGE DATE: FAMILY PHYSICIAN: Zechariah Gifford MD ATTENDING PHYSICIAN: Evelyn Stallworth LABORATORY DATA AND DIAGNOSTIC STUDIES: EKG with normal sinus rhythm at 60 beats per minute and paced rhythm. No acute ST elevation or depression. Renal panel is unremarkable. Troponin I is normal. CBC is normal. INR of 2.35. The patient had already taken one baby aspirin prior to arrival. Head CT with minimal small vessel ischemic changes and no acute ischemia was identified. IMPRESSION AND PLAN: 1. Weakness, currently resolved. The patient is adamant about returning home. This was possibly a transient ischemic attack. I did discuss this with her, and also with Dr. Gifford. She will be discharged home and continue her current cares. 2. Lumbar back pain. The patient is being scheduled for a CT myelogram per Dr. Gifford. She will continue her current medications. He has given her tramadol for pain, and he will contact her regarding her CT myelogram and she will see him next Friday. The patient understands and agrees, and all questions have been answered. MD RODERICK DIEZ/mitali /[id number] d: 03/14/17 2259 t: 03/18/17 0913, OUTPATIENT REPORT
[~2017-03-14 09:59] MED LIST changes: -ATIVAN 1 MG1 MG PO; -ULTRAM50 MG PO
[2017-03-14 10:56] LABS: BASOPHIL % 0.4 %; EOSINOPHIL % 0.3 %; HEMATOCRIT 41.1 % (30.0-46.0); HEMOGLOBIN 13.7 g/dL (10.0-15.0); IMMATURE GRANULOCYTE % 0.2 %; LYMPHOCYTE # 1.2 K/uL (0.8-4.0); LYMPHOCYTE % 12.9 %; MCH 31.9 pg (27.0-34.0); MCHC 33.3 gm/dL (32.0-36.5); MCV 95.6 fl (83.0-98.0); MONOCYTE # 0.5 K/uL (0.0-1.0); MONOCYTE % 5.7 %; MPV 10.4 fl (9.4-12.4); NEUTROPHIL # (ANC) 7.4 K/uL (1.8-7.8); NEUTROPHIL % 80.5 %; NRBC % 0 /100WBC (0-0.00); PLATELET COUNT 233 K/uL (150-450); RDW-CV 13.6 % (11.9-14.6); WBC 9.2 K/uL (4.0-11.0)
[2017-03-14 11:07] LABS: PTT 40 SECONDS (25-32)
[2017-03-14 11:08] LABS: INR - (THERAPEUTIC) 2.35 (0.92-1.07); PROTIME 24.9 SECONDS (9.8-11.4)
[2017-03-14 11:11] LABS: ALBUMIN 3.6 gm/dL (3.5-5.0); ANION GAP 11.4 (10.0-19.0); CREATININE 0.8 mg/dL (0.5-1.1); PHOSPHORUS 2.5 mg/dL (2.5-4.9); POTASSIUM 4.4 mMol/L (3.7-5.1)
[2017-03-26] MEDS ORDERED: BENICAR 20 MG20 MG PO (17:02)
[2017-03-26] MEDS ORDERED: ATIVAN 1 MG1 MG PO (17:03)
[2017-03-26] MEDS ORDERED: ULTRAM50 MG PO (17:03)
== END 2017-03-14 11:40 | disposition disaster alternative care site (69) ==
LOC: GMED 09:59
PROVIDERS: Family Medicine
DX: R53.1 Weakness (principal); R29.702 NIHSS score 2; M54.5 Low back pain; E03.9 Hypothyroidism, unspecified; I25.10 Atherosclerotic heart disease of native coronary artery without angina pectoris; I48.91 Unspecified atrial fibrillation; Z90.722 Acquired absence of ovaries, bilateral; Z79.82 Long term (current) use of aspirin; Z88.5 Allergy status to narcotic agent; Z79.899 Other long term (current) drug therapy; Z79.01 Long term (current) use of anticoagulants; Z86.73 Personal history of transient ischemic attack (TIA), and cerebral infarction without residual deficits; Z90.89 Acquired absence of other organs

== ENCOUNTER → 2017-04-09 | Outpatient (CLI) | payer MEDICARE, BC ==
[~2017-04-09] MED LIST changes: +ATIVAN 1 MG1 MG PO; +ULTRAM50 MG PO
== END ==
LOC: LNHI 09:35
DX: R53.83 Other fatigue (principal); I10 Essential (primary) hypertension

== ENCOUNTER → 2017-04-23 | Outpatient (CLI) | payer MEDICARE, BC ==
[2017-04-23 09:20] LABS: INR - (THERAPEUTIC) 1.12 (0.92-1.07); PROTIME 11.8 SECONDS (9.8-11.4)
== END | disposition disaster alternative care site (69) ==
LOC: GPOC 03-26 13:00 → EDSTATUS 03-27 13:00 → GPOC 03-27 13:00 → GRAD 07:55
PROVIDERS: Internal Medicine
DX: M54.5 Low back pain (principal); I25.10 Atherosclerotic heart disease of native coronary artery without angina pectoris; M41.9 Scoliosis, unspecified; M47.896 Other spondylosis, lumbar region; M48.06 Spinal stenosis, lumbar region